=== PATIENT | male | born 1985 | race Caucasian/White ===

== ENCOUNTER 2016-08-20 10:26 | Emergency (ER) | payer BC ==
[~2016-08-20] VITALS: Ht 180.3 cm; Wt 99.8 kg
[~2016-08-20 10:26] MED LIST: ADVIL200 M1; PROMETHAZI6.25 MG/5; ZESTRIL10 MG PO
[2016-08-20 10:45] VITALS: BP 172/96
--- NOTE | 2016-08-20 10:49 | NUR ---
Patient ambulated 4. RN evaluating patient at bedside.
--- NOTE | 2016-08-20 10:53 | NUR ---
PATIENT PRESENTS TO ED WITH COUGH, CONGESTION, FEVER, GEN WEAKNESS, VOMITING, DIARRHEA X1 WEEK, SKIN IS PINK/WARM/DRY; AAOX4 WITH EVEN AND STEADY GAIT; LUNGS CLEAR BL; HR EVEN AND REGULAR; PT DENIES ANY CP, SOB, AT THIS TIME; PATIENT STATES PAIN OF 2/10 AT THIS TIME; VSS; PATIENT POSITIONED FOR COMFORT; HOB ELEVATED; BEDRAILS UP X2; BED DOWN. ER MD MADE AWARE OF PT STATUS.
[2016-08-20 14:47] VITALS: BP 134/80
--- NOTE | 2016-08-20 14:47 | NUR ---
Patient discharged with v/s stable. Written and verbal after care instructions given and explained. Patient verbalized understanding. Ambulatory with steady gait. All questions addressed prior to discharge. Advised to follow up with PMD.
== END 2016-08-20 14:47 | disposition home or self-care (01) ==
LOC: MED 10:26
DX: J06.9 Acute upper respiratory infection, unspecified (principal); J02.9 Acute pharyngitis, unspecified; I10 Essential (primary) hypertension

== ENCOUNTER 2022-10-31 07:18 | Emergency (ER) | payer BC, OTHER ==
[~2022-10-31] VITALS: Ht 172.7 cm; Wt 108.9 kg
[2022-10-31 07:28] VITALS: BP 138/81
--- NOTE | 2022-10-31 07:34 | NUR ---
MD SY AT BEDSIDE FOR EVALUATION
[2022-10-31] MEDS ORDERED: DICYCLOMINE HCL LIQUID 20 MG, ALUMINUM HYD/MAG/SIMETHICONE 30 ML, LIDOCAINE VISCOUS 2% ... PO ONE ×3 (07:35)
[2022-10-31] MEDS ORDERED: ALUMINUM HYD/MAG/SIMETHICONE 30 ML UDC ONE (07:39)
[2022-10-31] MEDS ORDERED: DICYCLOMINE HCL LIQUID 10 MG/5 ML UDC ONE (07:39)
--- NOTE | 2022-10-31 07:44 | NUR ---
lab at bedside
--- NOTE | 2022-10-31 07:44 | NUR ---
37YO MALE PT C/O INCREASED INTERMITTENT SHARP CHEST PAIN [id number]. STATES RADIATION TO NECK AND SUDDEN EPISODES W/ SOB, NAUSEA, DIZZINESS AND BLURRY VISION. NOTES INITIAL ONSET X1YEAR AND RECENT "NORMAL" ER VISIT. DENIES TAKING MEDICATION, DIARRHEA, FEVER ,CHILLS. 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 HOB POSITIONED PER COMFORT. HX: HTN NKA
[2022-10-31 07:52] LABS: BASOPHILS % (AUTO) 0.8 % (0.0-2.0); EOSINOPHILS # (AUTO) 0.3 K/uL (0-0.4); EOSINOPHILS % (AUTO) 4.7 % (0.0-4.0); HEMATOCRIT 42.2 % (36-52); HEMOGLOBIN 14.9 g/dL (12.0-18.0); LYMPHOCYTES # (AUTO) 1.5 K/uL (2.0-11.5); LYMPHOCYTES % (AUTO) 27.6 % (20.5-51.1); MEAN CORPUSCULAR HEMOGLOBIN 30 pg (27-31); MEAN CORPUSCULAR HGB CONC 35 g/dL (33-37); MEAN CORPUSCULAR VOLUME 85.7 fL (80-94); MONOCYTES # (AUTO) 0.4 K/uL (0.8-1.0); MONOCYTES % (AUTO) 7.3 % (1.7-9.3); NEUTROPHILS # (AUTO) 3.3 K/uL (1.8-7.7); NEUTROPHILS % (AUTO) 59.6 % (42.2-75.2); PLATELET COUNT (AUTO) 212 K/uL (140-450); RED BLOOD CELL COUNT(AUTO) 4.93 MIL/uL (4.20-6.10); RED CELL DISTRIBUTION WIDTH 12.9 % (11.6-13.7); WHITE BLOOD COUNT (AUTO) 5.6 K/uL (4.8-10.8)
[2022-10-31 08:02] LABS: CARBON DIOXIDE 29.3 mmol/L (21-32); CREATININE 1.2 mg/dL (0.6-1.3); POTASSIUM 3.3 mmol/L (3.5-5.1)
--- NOTE | 2022-10-31 08:07 | NUR ---
xray at bedside
[2022-10-31] MEDS ORDERED: SODIUM PHOS / POTASSIUM PHOS 1 PKT PDR PO SCH (08:35)
[2022-10-31 08:52] VITALS: BP 135/82
--- NOTE | 2022-10-31 08:52 | NUR ---
Patient discharged with v/s stable. Written and verbal after care instructions FOR CHEST WALL PAIN given and explained. Patient verbalized understanding. Ambulatory with steady gait. All questions addressed prior to discharge. Advised to follow up with PMD.
--- NOTE | 2022-10-31 08:53 | NUR ---
The patient's care was reviewed and supervised by Mary Quijano, RN, RN.
== END 2022-10-31 08:52 | disposition home or self-care (01) ==
LOC: MED 07:18
DX: R07.9 Chest pain, unspecified (principal)
CPT/HCPCS: 36415; 71045; 80048; 82553; 84484; 85025; 85379; 93005; 99285; J7030; Q0092

== ENCOUNTER 2022-12-04 20:09 | Emergency (ER) | payer OTHER ==
[~2022-12-04] VITALS: Ht 180.3 cm; Wt 107.5 kg
[2022-12-04 20:20] VITALS: BP 152/110
--- NOTE | 2022-12-04 20:40 | NUR ---
Laura wasserman in [facility] - 12/04/22 at 2043 by [email or web address] ASSUMED CARE PTCP AND BACK PAIN ASOO WITH N/V
[2022-12-04] MEDS ORDERED: LABETALOL 20 MG/4 ML VIAL IVP ONE (20:50)
[2022-12-04] MEDS ORDERED: ASPIRIN 325 MG TAB PO ONE (20:50)
--- NOTE | 2022-12-04 20:56 | NUR ---
AT TO EXAMINE PT
--- NOTE | 2022-12-04 21:06 | NUR ---
MD MADE AWARE OF RESCENT BP, THAT IS IMPROVING CLARIFIED WITH DR FAUST IF HE STILL WANT ME TO GIVE BP BLOOD PRESSURE MED, SAID YES, AND TO GIVE IT SLOW IVP
[2022-12-04 21:08] LABS: BASOPHILS % (AUTO) 0.6 % (0.0-2.0); EOSINOPHILS # (AUTO) 0.3 K/uL (0-0.4); EOSINOPHILS % (AUTO) 3.6 % (0.0-4.0); HEMOGLOBIN 15.7 g/dL (12.0-18.0); LYMPHOCYTES # (AUTO) 2.4 K/uL (2.0-11.5); LYMPHOCYTES % (AUTO) 32.2 % (20.5-51.1); MEAN CORPUSCULAR HEMOGLOBIN 30 pg (27-31); MEAN CORPUSCULAR HGB CONC 35 g/dL (33-37); MEAN CORPUSCULAR VOLUME 86.2 fL (80-94); MONOCYTES # (AUTO) 0.5 K/uL (0.8-1.0); MONOCYTES % (AUTO) 6.9 % (1.7-9.3); NEUTROPHILS # (AUTO) 4.3 K/uL (1.8-7.7); NEUTROPHILS % (AUTO) 56.7 % (42.2-75.2); PLATELET COUNT (AUTO) 244 K/uL (140-450); RED BLOOD CELL COUNT(AUTO) 5.22 MIL/uL (4.20-6.10); RED CELL DISTRIBUTION WIDTH 13.1 % (11.6-13.7); WHITE BLOOD COUNT (AUTO) 7.6 K/uL (4.8-10.8)
--- NOTE | 2022-12-04 21:09 | NUR ---
BP MED HELD, BP 137/89
[2022-12-04 22:06] VITALS: BP 118/64
[2022-12-04 22:20] LABS: ANION GAP 10.9 (8-16); CARBON DIOXIDE 29.7 mmol/L (21-32); CREATININE 1.2 mg/dL (0.6-1.3); POTASSIUM 3.6 mmol/L (3.5-5.1); TOTAL BILIRUBIN 0.2 mg/dL (0.0-1.0)
--- NOTE | 2022-12-04 23:44 | NUR ---
PT SEEMED VERY ANXIOUS DURING DC , AT TO [facility]EE[facility] PT AND DISCUSS TEST RESULTS AND HE IS CLEARED TO BE DC HOME.COPY OF TEST RESULT PROVIDED
--- NOTE | 2022-12-04 23:47 | NUR ---
Patient discharged with v/s stable. Written and verbal after care instructions given and explained. Patient verbalized understanding. Ambulatory with to home. All questions addressed prior to discharge. Advised to follow up with PMD.
== END 2022-12-04 23:47 | disposition home or self-care (01) ==
LOC: MED 20:09
DX: F41.9 Anxiety disorder, unspecified (principal); R07.89 Other chest pain; I10 Essential (primary) hypertension
CPT/HCPCS: 36415; 71045; 80053; 83880; 84484; 85025; 85379; 93005; 99285; J3490; Q0092

== ENCOUNTER 2022-12-14 09:00 | Emergency (ER) | payer OTHER ==
[~2022-12-14] VITALS: Ht 180.3 cm; Wt 111.3 kg
[2022-12-14 09:10] VITALS: BP 160/98
[2022-12-14 10:43] VITALS: BP 139/85
== END 2022-12-14 10:43 | disposition home or self-care (01) ==
LOC: MED 09:00
DX: I10 Essential (primary) hypertension (principal); G44.209 Tension-type headache, unspecified, not intractable; Z79.899 Other long term (current) drug therapy; Z72.89 Other problems related to lifestyle
CPT/HCPCS: 99281; 99283